=== PATIENT | male | born 1940 | race Caucasian/White ===

== ENCOUNTER 2016-08-24 04:32 | Day surgery (SDC) | payer MEDICARE, BC ==
[~2016-08-24 04:32] MED LIST: ALEVE220 MG PO; FLOMAX4 PO; GLUCOPHAGE1000 MG PO; GLUCXL5 PO; JANUVIA100 MG PO; NORCO1 TA1 PO
== END 2016-08-24 08:30 | disposition home or self-care (01) ==
LOC: SDC 04:32
PROVIDERS: Orthopaedic Surgery
PROC: 3E0R3BZ Introduction of Anesthetic Agent into Spinal Canal, Percutaneous Approach (ICD-10-PCS; 2016-08-24)
PROC: B01BYZZ Fluoroscopy of Spinal Cord using Other Contrast (ICD-10-PCS; 2016-08-24)
PROC: 3E0R33Z Introduction of Anti-inflammatory into Spinal Canal, Percutaneous Approach (ICD-10-PCS; principal; 2016-08-24 08:15)
DX: M54.17 Radiculopathy, lumbosacral region (principal); E11.9 Type 2 diabetes mellitus without complications; Z79.899 Other long term (current) drug therapy; Z88.8 Allergy status to other drugs, medicaments and biological substances; Z90.89 Acquired absence of other organs; Z90.49 Acquired absence of other specified parts of digestive tract; Z98.890 Other specified postprocedural states; Z96.652 Presence of left artificial knee joint
CPT/HCPCS: 82962; J1040; J2250; J3010; Q9967

== ENCOUNTER 2016-09-07 04:32 | Day surgery (SDC) | payer MEDICARE, BC | END 2016-09-07 08:15 | disposition home or self-care (01) | LOC: SDC 04:32 | PROVIDERS: Orthopaedic Surgery | PROC: 3E0R3BZ Introduction of Anesthetic Agent into Spinal Canal, Percutaneous Approach (ICD-10-PCS; 2016-09-07) | PROC: B01BYZZ Fluoroscopy of Spinal Cord using Other Contrast (ICD-10-PCS; 2016-09-07) | PROC: 3E0R33Z Introduction of Anti-inflammatory into Spinal Canal, Percutaneous Approach (ICD-10-PCS; principal; 2016-09-07 07:00) | DX: M54.17 Radiculopathy, lumbosacral region (principal); Z88.8 Allergy status to other drugs, medicaments and biological substances; Z79.899 Other long term (current) drug therapy; Z98.890 Other specified postprocedural states; Z90.49 Acquired absence of other specified parts of digestive tract; Z90.89 Acquired absence of other organs | CPT/HCPCS: 82962; J1040; J2250; J3010; Q9967 ==